=== PATIENT | female | born 1955 | race Caucasian/White ===

== ENCOUNTER 2016-09-29 17:34 | Emergency (ER) | payer OTHER, MEDICARE ==
[~2016-09-29 17:34] MED LIST: ASCO500C6 PO; BIOT5CAP9 PO; CALC-140 PO; CHOL5000 PO; CYAN10008 PO; FOLI1TAB18 PO; INUL1TAB4 PO; METH2.5T PO; MULT-666 PO; [UNRECOGNIZED DRUG - CODE] PO
== END 2016-09-29 17:50 | disposition left against medical advice (07) ==
LOC: SED 17:34
DX: Z53.20 Procedure and treatment not carried out because of patient's decision for unspecified reasons (principal)

== ENCOUNTER → 2017-03-25 | Day surgery (SDC) | payer OTHER, MEDICARE ==
[~2017-03-25] VITALS: Ht 160 cm; Wt 62.1 kg
[~2017-03-25] MED LIST changes: +ACET-2766 PO; +INFL100V IV; -INUL1TAB4 PO; +Lactated Ringer's 1,000 ML IV ONE; +Lactated Ringer's 1,000 ML IV SCH; +MetoCLOpramide 5 mg/mL 2 mL Inj IVPUSH PRN; +OMEP20CA11 PO; +OXYC1TAB24 PO; +Ondansetron 2 mg/mL 2 mL Inj IVPUSH PRN; +PRE20 PO; +Propofol 10,000 mCg/mL 20 mL Inj ONE; -[UNRECOGNIZED DRUG - CODE] PO; +fentaNYL-PF 50 mCg/mL 2 mL Inj ONE
[2017-03-25 09:14] VITALS: BP 124/69; PULSE 64; O2SAT 97
--- NOTE | 2017-03-25 09:36 | PCM.HPANE ---
Patient Data Surgeon Admitting Provider: Attending Provider:Jovanni Thompson MD Primary Care Physician:Tiburcio Bartlett MD Other Provider:Judith Ceballos Anesthesia Reason for Visit Diarrhea, Epigastric Pain Ht/WT & BMI Body Mass Index Allergies Coded Allergies: ibuprofen (Verified Allergy, Unknown, 01/28/16) s/p gastric sleeve surgery Past Anesthesia History Anesthesia History: Denies:: Anesthesia Reactions Medications Reported Medications Acetaminophen (Tylenol Arthritis)650 Mg Tablet.er650 Mg PO 03/24/17 Infliximab (Remicade)10 Mg/Ml [id number] Mg IV 03/24/17 oxyCODONE-Acetaminophen 5-325 mg 1 Each Tablet1 Tab PO Q6H PRN For Pain Ref 0 03/24/17 Omeprazole 20 Mg Capsule.dr20 Mg PO BID Ref 0 03/24/17 Multivitamin (Once Daily)1 Each Tablet1 Each PO DAILY 06/12/16 Ascorbic Acid (Vitamin C)500 Mg Capsule.er500 Mg PO DAILY 01/28/16 Cyanocobalamin (Vitamin B-12) (Vitamin B-12)1,000 Mcg Tablet1,000 Mcg PO DAILY 01/28/16 Methotrexate Sodium (Methotrexate)2.5 Mg Mexaqs35 Tablet PO BID PRN weekly 01/28/16 Folic Acid 1 Mg Tablet1 Mg PO DAILY 30 Days 01/28/16 Calcium Carbonate/Vitamin D3 (Calcium + Vitamin D Tablet)1 Each Tablet1 Each PO DAILY 01/28/16 Biotin 5 Mg Capsule5 Mg PO BID 01/28/16 Discontinued Reported Medications Ascorbic Acid (Vitamin C)500 Mg Capsule.er500 Mg PO DAILY 03/24/17 Prednisone (PredniSONE)20 Mg Xiqglj78 Mg PO DAILY Ref 0 03/24/17 Cholecalciferol (Vitamin D3) (Vitamin D3)5,000 Unit Capsule5,000 Unit PO DAILY 01/28/16 Oxycodone HCl/Acetaminophen (Primlev 5-300 mg Tablet)1 Each Tablet1 Each PO QID PRN prn 01/28/16 Inulin/Chromium Picolinate (Fiber Gummies)2 Gram-100 Mcg Tab.chew1 Each PO BID 01/28/16 History History of ENT Problems?: No HEENT History: Denies:: Abnormal Airway Cataracts Difficult Intubation Dysphagia Glaucoma Hearing Problem Sinus Problem TMJ Denture Type: None Teeth Condition: Within Normal Limits Hx of Heart Problems?: No Cardiovascular History: Denies:: AICD Abdominal Aortic Aneurism Atrial Fibrillation Cardiac Surgery Chest Pain Congestive Heart Failure Coronary Artery Disease Edema Heart Murmur Hypertension Irregular Heartbeat Pacemaker Peripheral Vascular Rheumatic Fever Thrombophlebitis Valvular Heart Disease Hx of Respiratory Problem?: No Respiratory History: Denies:: Asthma COPD Chest Surgery Cough Dyspnea Emphysema Hemoptysis Oxygen Administration Pneumonia Pulmonary Embolism Tuberculosis Use of C-PAP Machine Use of Inhalers / NEBS Hx Neurologic Problems?: No Hx of GI Problems?: Yes Hx of Problems?: No Genitourinary History: Denies:: HX of Hemodialysis Kidney Stones Urinary Tract Infection HX of Peritoneal Dialysis: No Female Hx: Denies:: Currently (s/p hysterectomy) Endometriosis Pelvic Inflammatory Problems with Breasts? Hx Musculoskeletal Problems?: Yes Hx of Psycho/Social Problems?: No Hx Surgeries?: Yes (basil joint reconstruction, Hysterectomy, Gallbladder removal) Hx Any Other Health Problems?: Yes History Blood Transfusions: Denies:: Blood Transfusions Hx Alcohol Use: NoHx Substance Use: No Stop/Bang Risk Assessment Category Category 1A: Patient has history of documented sleep apnea, and HAS NOT received any narcotic, sedative or anesthesia administration during this stay. Category 1B: Patient has history of documented sleep apnea, and HAS received any narcotic , sedative or anesthesia administration during this stay Category 2: Patient has SUSPECTED Obstructive Sleep Apnea, and HAS received any narcotic , sedative or anesthesia administration during this stay. Category 3: Patient has SUSPECTED Obstructive Sleep Apnea and HAS NOT received narcotic, sedative or anesthesia administration during this stay. Category 4: Outpatient in Procedural Areas with known sleep apnea or who screen positive for High Risk via the STOP/BANG questionnaire. Exam Exam General Appearance: Alert HEENT/AIRWAY: MP 2, Neck Movement (FROM, 3 FB) Lungs: Clear to Auscultation Heart: Regular Rate/Rhythm Plan Impression Patient chart reviewed, patient interviewed and anesthestic plan with risks, benefits, and alternatives discussed, and informed consent obtained. NPO per Anesth. Guidelines: Yes ASA Physical Status: ASA3 Severe Disease Anesthetic Plan: MAC Bene/Risks/Altern/Consents: Yes HP Complete Prior to Induction: Yes Allen Jamil MD Mar 25, 2017 09:00
[2017-03-25 10:34] VITALS: BP 102/57; PULSE 67; RESP 14; O2SAT 98
--- NOTE | 2017-03-25 10:40 | PCM.ANEP1 ---
Post Anesthesia PACU Phase 1 Assessment Vital Signs Vital Signs Date Time Temp Pulse Resp B/P Pulse Ox O2 Delivery O2 Flow Rate FiO2 03/25/17 10:34 36.2 67 14 102/57 98 Room Air 03/25/17 09:14 64 124/69 97 Room Air Anesthetic Administered: MAC Level of Alertness: Awake, talking PARK's with Equal Strength: Yes Pain: No Nausea or Vomiting: No CV Function & Hydration Stable: Yes Airway Device: Oxygen Delivery: Room Air Lungs: Clear to Auscultation Dermatome Level: Full Sensation PACU Phase 2 Assessment Complications: No Follow up Care: N/A Patient Instructions Provided: N/A Allen Jamil MD Mar 25, 2017 10:40
[2017-03-25 10:45] VITALS: BP 111/63; PULSE 56; RESP 12; O2SAT 98
[2017-03-25 10:57] VITALS: BP 117/63; PULSE 67; RESP 12; O2SAT 100
--- NOTE | 2017-03-26 07:05 | ENDO ---
[address] [address] ENDOSCOPY PROCEDURE PATIENT: DEBBIE LEMUS : 1955 MR#: [id number] ADMIT: 03/25/2017 JOB ID: [id number] DATE: 03/25/2017 TYPE OF PROCEDURE: Esophagogastroduodenoscopy. INDICATION: Epigastric pain. Patient's ASA classification, Mallampati score, and medications as per Dr. Yair Jamil's anesthesia report. INSTRUMENT USED: [id number] PROCEDURE DETAILS: After informed consent was obtained, the patient was brought into the GI suite, where she was placed on oxygen via nasal cannula and monitored with continuous pulse oximeter, telemetry, and blood pressure monitoring. A time-out was performed. Then, she was placed in a left lateral decubitus position and a bite block was placed. Medications were then administered for sedation. The standard esophagogastroduodenoscopy scope was inserted through the bite block and advanced under direct visualization to the second portion of the duodenum without difficulty. FINDINGS: 1. In the duodenal bulb there was a focal area of erythema suggestive of duodenitis. Multiple biopsies were obtained. The remainder of the duodenal exam otherwise appeared unremarkable. Multiple random biopsies were obtained in the second portion of the duodenum. 2. The pylorus was widely patent. At the pylorus at the 7 o'clock position there was a evidence of a healed ulcer. Multiple biopsies were obtained. 3. Erythema and edema was noted in the body and antrum of the stomach. Multiple random biopsies were obtained. 4. Retroflexed views in the gastric body revealed surgical changes consistent with patient's history of gastric sleeve surgery. 5. The distal portion of the sleeve was at approximately 43 cm and the GE junction was at approximately 35 cm. At the GE junction the mucosa was ulcerated, suggestive of ulcerative esophagitis LA class C. There was no stricture or resistance noted as we traversed this area with the EGD scope. The remainder of the esophagus exam was otherwise unremarkable. Multiple random biopsies were obtained in the mid esophagus secondary to patient's complaint of dysphagia. IMPRESSION: 1. Inflammation in the duodenal bulb which was focal. 2. Gastritis. 3. Healed ulcer at the pylorus, which measured approximately 3-4 mm in area with a clean base. 4. Surgical changes consistent with gastric sleeve. 5. Distal esophagitis. RECOMMENDATIONS: 1. PPI daily. 2. Reflux precautions. 3. Proceed to colonoscopy. PROCEDURE PERFORMED: Colonoscopy. INDICATION: Diarrhea. Please see above for ASA classification, Mallampati score, and medications. Instrument used was a [id number]. PREPARATION QUALITY: Good. PROCEDURE DETAILS: After completion of the EGD exam, the patient was turned and then a digital rectal exam was performed, which was unremarkable. The colonoscope was then inserted into the rectum and advanced under direct visualization to the cecum, which identified by the presence of the ileocecal valve and appendiceal orifice. Once the cecum was reached, the colonoscope was withdrawn back into the rectum and the mucosa and lumen were examined. In the rectum, retroflexion was performed. Following retroflexion, remaining air in the rectum was suctioned, and procedure was completed. FINDINGS: 1. In the ascending colon, there were two polyps: The larger polyp was flat appearance was consistent with a serrated adenoma. The polyp measured approximately 8 mm in size. Polyp was lifted using normal saline and then removed piecemeal with a hot snare. 2. Just distal to this polyp was a flat polyp on a fold that measured approximately 5-6 mm. Polyp was removed using Jumbo forceps. 3. Scattered diverticula were seen throughout the left side of the colon. 4. In the sigmoid colon there was an approximately 4 mm sessile polyp that was removed with a cold snare. 5. The mucosa otherwise appeared unremarkable from the rectum to the cecum. Multiple random biopsies were obtained. IMPRESSION: 1. Two ascending colon polyps. 2. Sigmoid polyp. 3. Left-sided diverticulosis. 4. Internal hemorrhoids. RECOMMENDATIONS: 1. Avoid NSAIDs and anticoagulants for 72 hours. 2. Fiber rich diet. 3. Follow up in GI clinic in 2-4 weeks. COMPLICATIONS: None. ESTIMATED BLOOD LOSS: Less than 5 mL. Cc: Dr. Tiburcio Bartlett
--- NOTE | 2017-03-29 17:24 | PATH ---
SURGICAL PATHOLOGY Attending Physician:Nathanael Rivera CASE STATUS: Signed Out PATIENT NAME: DEBBIE LEMUS PID: [id number] : 1955 DATE COLLECTED:03/25/2017 22:14 SPECIMEN: 1: Duodenum, Biopsy 2: Gastric, Biopsy 3: Duodenum, Biopsy 4: Gastric, Biopsy 5: Esophagus, Biopsy 6: Colon, Polyp 7: Colon, Polyp 8: Colon, Biopsy CLINICAL HISTORY: 1). DUODENAL 2). RANDOM GASTRIC 3). DUODENAL BULB ERYTHEMA 4). PYLORIC ULCER 5). MID ESOPHAGUS 6). ASCENDING COLON POLYPS X2 7). SIGMOID POLYP X1 8). RANDOM BIOPSY COLON FINAL DIAGNOSIS: 1.DUODENUM, BIOPSY: DUODENAL MUCOSA WITH NO DIAGNOSTIC ABNORMALITY. Negative for active inflammation, features of sprue, dysplasia, and malignancy. 2.RANDOM STOMACH BIOPSY: GASTRIC ANTRAL MUCOSA WITH FEATURES OF REACTIVE GASTROPATHY. Negative for Helicobacter organisms. Negative for intestinal metaplasia. Negative for dysplasia and malignancy. 3.DUODENAL BULB ERYTHEMA, BIOPSY: DUODENAL MUCOSA WITH FOVEOLAR METAPLASIA. Negative for dysplasia and malignancy. 4.PYLORIC ULCER, BIOPSY: GASTRIC ANTRAL-TYPE MUCOSA WITH REACTIVE CHANGES AND FOCAL SURFACE FIBRIN CONSISTENT WITH ADJACENT EROSION. Negative for intestinal metaplasia. Negative for dysplasia and malignancy. 5.MID ESOPHAGUS, BIOPSY: SQUAMOUS EPITHELIUM WITH NO DIAGNOSTIC ABNORMALITY. Intraepithelial eosinophils are not increased. Negative for dysplasia and malignancy. 6.ASCENDING COLON POLYPS, BIOPSY: MULTIPLE FRAGMENTS OF SERRATED POLYP, SOME WITH FEATURES FAVORING SESSILE SERRATED ADENOMA. 7.SIGMOID COLON POLYP, BIOPSY: TUBULAR ADENOMA. 8.RANDOM COLON, BIOPSY: COLONIC MUCOSA WITH NO DIAGNOSTIC ABNORMALITY. Negative for active or microscopic colitis. Negative for dysplasia and malignancy. ICD10 R10.9 GROSS DESCRIPTION: Received eight formalin-filled containers, each labeled with the patient' s name. 1. Received in formalin, labeled with the patient' s name and "duodenal biopsy", are three fragments of morocho, soft tissue ranging from 0.1 x 0.1 x 0.1 cm to 0.3 x 0.2 x 0.1 cm. The fragments are totally submitted in cassette 1A. 2. Received in formalin, labeled with the patient' s name and "random gastric biopsy", are three fragments of morocho, soft tissue ranging from 0.1 x 0.1 x 0.1 cm to 0.4 x 0.2 x 0.1 cm. The fragments are totally submitted in cassette 2A. 3. Received in formalin, labeled with the patient' s name and "duodenal bulb erythema", is one fragment of morocho, soft tissue measuring 0.3 x 0.2 x 0.2 cm. The fragment is totally submitted in cassette 3A. 4. Received in formalin, labeled with the patient' s name and "colonic ulcer", are two fragments of morocho, soft tissue ranging from 0.2 x 0.1 x 0.1 cm to 0.3 x 0.2 x 0.2 cm. The fragments are totally submitted in cassette 4A. 5. Received in formalin, labeled with the patient' s name and "mid esophagus", are five fragments of morocho, soft tissue ranging from 0.1 x 0.1 x 0.1 cm to 0.2 x 0.1 x 0.1 cm. The fragments are totally submitted in cassette 5A. 6. Received in formalin, labeled with the patient' s name and "ascending colon polyp x2", are multiple fragments of morocho, soft tissue ranging from 0.1 x 0.1 x 0.1 cm to 0.9 x 0.5 x 0.3 cm. The larger fragment is bisected. All fragments are totally submitted in cassette 6A. 7. Received in formalin, labeled with the patient' s name and "sigmoid polyp", is one fragment of morocho, soft tissue measuring 0.3 x 0.2 x 0.2 cm. The fragment is totally submitted in cassette 7A. 8. Received in formalin, labeled with the patient' s name and "random colon", are multiple fragments of morocho, soft tissue ranging from 0.2 x 0.1 x 0.1 cm to 0.4 x 0.1 x 0.1 cm. The fragments are totally submitted in cassette 8A. [id number]) MICRO DESCRIPTION: See diagnosis. ICD-9 CODES: CPT CODES: 1: 92093 2: 86833 3: 09192 4: 92979 5: 81377 6: 36174 7: 39721 8: 87425 Electronically Signed Out Thong Vega MD, Ph.D. [facility]ology [facility], [place] [address] Technical component performed at [facility], [facility] [address], [place], [address]
== END | disposition home or self-care (01) ==
LOC: END 00:55
PROVIDERS: ATTEND Internal Medicine Gastroenterology
DX: D12.2 Benign neoplasm of ascending colon (principal); D12.5 Benign neoplasm of sigmoid colon; K57.30 Diverticulosis of large intestine without perforation or abscess without bleeding; K64.8 Other hemorrhoids; K29.70 Gastritis, unspecified, without bleeding; K20.9 Esophagitis, unspecified; M06.9 Rheumatoid arthritis, unspecified; M79.7 Fibromyalgia; K21.9 Gastro-esophageal reflux disease without esophagitis; K58.9 Irritable bowel syndrome, unspecified; Z98.84 Bariatric surgery status; M19.90 Unspecified osteoarthritis, unspecified site; Z86.010 Personal history of colon polyps; Z79.891 Long term (current) use of opiate analgesic; Z90.710 Acquired absence of both cervix and uterus
CPT/HCPCS: 43239; 45380; 45381; 45385; J2250; J3010; J7120